=== PATIENT | male | born 1940 | race Caucasian/White ===

== ENCOUNTER 2023-02-01 10:48 | Inpatient (IN) | payer MEDICARE, OTHER ==
[~2023-02-01] VITALS: Ht 185.4 cm; Wt 105.2 kg
[2023-02-01] VITALS (8 sets, daily range): BP systolic 73–97; BP diastolic 23–50
--- NOTE | 2023-02-01 11:11 | NUR ---
DR. ABRAHAM AT BEDSIDE
--- NOTE | 2023-02-01 11:13 | NUR ---
CODE STROKE ACTIVATED
--- NOTE | 2023-02-01 11:15 | NUR ---
ESTABLISHED IV ACCESS LEFT AC 20G. BLOOD DRAWN AND SENT TO LAB.
--- NOTE | 2023-02-01 11:16 | NUR ---
PRESIDENT AND CEO, PHARMACIST, NURSING DIRECTOR OF SPECIAL EVENTS AT BEDSIDE.
[2023-02-01] MEDS ORDERED: IV NS 0.9% 250 ML IV ONE (11:18)
[2023-02-01] MEDS ORDERED: IOHEXOL-350 100 ML VIAL IV ONE (11:18)
--- NOTE | 2023-02-01 11:20 | NUR ---
PT TAKEN TO CT VIA RHUBER.
[2023-02-01 11:30] LABS: BASOPHILS # (AUTO) 0.1 K/uL (0.0-0.2); BASOPHILS % (AUTO) 0.5 % (0.0-2.0); HEMATOCRIT 29 % (39-51); HEMOGLOBIN 9.3 g/dL (13.5-17.5); LYMPHOCYTES # (AUTO) 0.3 K/uL (0.8-4.8); LYMPHOCYTES % (AUTO) 2.3 % (20.0-44.0); MEAN CORPUSCULAR HGB CONC 33 g/dl (31.0-36.0); MEAN CORPUSCULAR VOLUME 101 fL (80-96); MONOCYTES # (AUTO) 0.8 K/uL (0.1-1.30); MONOCYTES % (AUTO) 5.9 % (2.0-12.0); NEUTROPHILS # (AUTO) 12.1 K/uL (1.8-8.9); NEUTROPHILS % (AUTO) 91.3 % (43.0-81.0); PLATELET COUNT (AUTO) 83 K/uL (150-450); RED BLOOD CELL COUNT(AUTO) 2.83 MIL/uL (4.5-6.0); WHITE BLOOD COUNT (AUTO) 13.3 K/uL (4.3-11.0)
[2023-02-01] MEDS ORDERED: IV NS 0.9% 500 ML BAG IV ONE (11:30)
--- NOTE | 2023-02-01 11:32 | NUR ---
Meet lehman son Mirela Maximo - [phone]
[2023-02-01 11:45] LABS: ALANINE AMINOTRANSFERASE 23 U/L (12-78); ALBUMIN 2.7 g/dL (3.4-5.0); ALKALINE PHOSPHATASE 157 U/L (46-116); ASPARTATE AMINOTRANSFERASE 67 U/L (15-37); BILIRUBIN,DIRECT 1.7 mg/dL (0.0-0.2); BILIRUBIN,TOTAL 4.3 mg/dL (0.2-1.0); CALCIUM, SERUM 9.6 mg/dL (8.5-10.1); CARBON DIOXIDE 24 mmol/L (21-32); CHLORIDE 97 mmol/L (98-107); CREATININE 3.4 mg/dL (0.6-1.3); GLUCOSE 126 mg/dL (74-106); POTASSIUM 5.6 mmol/L (3.5-5.1); SODIUM SERUM 136 mmol/L (136-145); TOTAL PROTEIN, SERUM 6.1 g/dL (6.4-8.2); UREA NITROGEN, BLOOD 156 mg/dL (7-18)
--- NOTE | 2023-02-01 11:50 | NUR ---
R AC 20 G
[2023-02-01] MEDS ORDERED: ONDA4TAB5 PO (11:53)
[2023-02-01] MEDS ORDERED: DOCU-141 PO (11:53)
[2023-02-01] MEDS ORDERED: MELA3TAB41 PO (11:53)
[2023-02-01] MEDS ORDERED: APIX2.5T PO (11:53)
[2023-02-01] MEDS ORDERED: MULT-447 PO (11:53)
[2023-02-01] MEDS ORDERED: ALLO100T PO (11:53)
[2023-02-01] MEDS ORDERED: LACT10SO3 PO (11:53)
[2023-02-01] MEDS ORDERED: TROS20TA3 PO (11:53)
[2023-02-01] MEDS ORDERED: NA P133E RC (11:53)
[2023-02-01] MEDS ORDERED: ASCO-352 PO (11:53)
[2023-02-01] MEDS ORDERED: BUME2TAB7 PO (11:53)
[2023-02-01] MEDS ORDERED: POLY17PO4 PO (11:53)
[2023-02-01] MEDS ORDERED: MAGN400O6 PO (11:53)
[2023-02-01] MEDS ORDERED: CHOL100043 PO (11:53)
[2023-02-01] MEDS ORDERED: POTA-88 PO (11:53)
[2023-02-01] MEDS ORDERED: METO2.5T2 PO (11:53)
[2023-02-01] MEDS ORDERED: BISA10SU11 RC (11:53)
[2023-02-01 11:57] LABS: ABG PCO2 29.9 mmHg (35.0-45.0); ABG PH 7.482 (7.350-7.450); ABG PO2 93.9 mmHg (75.0-100.0); COHb 0.3 % (0.5-1.5); MetHb 0.3 % (0.0-1.5); O2Hb 95.8 % (94.0-97.0); SITE, ABG Right Radial; VENT MODE, BG RA 21%
[2023-02-01] MEDS ORDERED: IV NS 0.9% 1,000 ML BAG IV ONE (12:00)
[2023-02-01] MEDS ORDERED: LEVOFLOXACIN 750 MG /D5W 150ML PIGGYBACK IV ONE (12:00)
[2023-02-01] MEDS ORDERED: VANCOMYCIN 1 GM in IV D5W 250 ML IV ONE (12:00)
--- NOTE | 2023-02-01 12:03 | NUR ---
COVID SWAB OBTAINED
--- NOTE | 2023-02-01 12:06 | NUR ---
KIYA "DAUGHTER" Addendum: 02/01/23 at 9908 by KEENA kiya is the
[2023-02-01 12:29] LABS: BAND % (MANUAL) 6 % (0.0-5.0); EOSINOPHILS % (MANUAL) 0 % (0-4); LYMPHOCYTES % (MANUAL) 3 % (16-48); MONOCYTES % (MANUAL) 7 % (0-11.0); NEUTROPHILS % (MANUAL) 84 (42-76)
--- NOTE | 2023-02-01 12:37 | NUR ---
URINE SAMPLE OBTAINED
--- NOTE | 2023-02-01 12:37 | NUR ---
16 fr mejia cath inserted
[2023-02-01] MEDS ORDERED: LEVOFLOXACIN 750 MG /D5W 150ML 150 ML IV ONE (13:05)
[2023-02-01 13:06] LABS: BILIRUBIN,URINE NEGATIVE (NEGATIVE); COLOR,URINE YELLOW (YELLOW); LEUKOCYTE ESTERASE ,URINE NEGATIVE (NEGATIVE); NITRITE, URINE NEGATIVE (NEGATIVE); PROTEIN,URINE NEGATIVE (NEGATIVE); UGLUCOSE NEGATIVE (NEGATIVE); UROBILINOGEN,URINE 0.2 EU/dL (0.2)
[2023-02-01] MEDS ORDERED: LACTULOSE 10 G/15 ML UDC (PYXIS) GT ONE (14:00)
[2023-02-01] MEDS ORDERED: LACTULOSE 10 G/15 ML UDC (PYXIS) ONE ×2 (14:15→14:16)
--- NOTE | 2023-02-01 14:22 | NUR ---
BED ASSIGNMENT 253
--- NOTE | 2023-02-01 14:40 | NUR ---
ng tube placed
--- NOTE | 2023-02-01 15:01 | NUR ---
report given to JEET SIERRA for ray
--- NOTE | 2023-02-01 15:23 | NUR ---
patient transported via gurney [facility] protocol
--- NOTE | 2023-02-01 15:25 | NUR ---
RN NOTE RECEIVED PATIENT FROM ER VIA GURNEY VERY CONFUSED. ON ROOM AIR SATING 97% NO SOB NO DISTRESS NOTED AT THIS TIME. WITH IV ACCESS AT RIGHT UPPER ARM GAUGE 20 AND LEFT AC GAUGE 20 PATENT FLUSHES WELL NO REDNESS NOTED AT THIS TIME. WITH NGT IN PLACE PER REPORT LACTULOSE WAS GIVEN. HAS BRAUN CATHETER PATENT DRAINING YELLOW URINE .BODY CHECKED DONE NOTED WITH MULTIPLE SKIN DISCOLORATION AND MULTIPLE SKIN TEAR OF BOTH UPPER AND LOWER EXTREMITIES, PHOTOS TAKEN AND PLACED IN THE CHART. ALL SAFETY MEASURES IN PLACE. BED IN LOW AND LOCKED POSITION,SIDE RAILS UP X 3,HOB ELEVATED. CALL LIGHT WITHIN REACH. WILL MONITOR THE PATIENT.
[2023-02-01] MEDS ORDERED: ONDANSETRON HCL/PF 4 MG/2 ML VIAL IVP PRN (15:30)
[2023-02-01] MEDS: IV D5/ 0.9% NACL 1,000 ML IV PRN (17:37)
--- NOTE | 2023-02-01 18:20 | NUR ---
RECEIVED A CALL , SPOKE AT LENGTH TO PATIENT'S / ROSALIA KYIA OVER PHONE. FAMILY WISHES TO CHANGE CODE STATUS TO DNR/DNI/ NO VASOPRESSORS. FAMILY INDICATED NO FURTHER AGGRESSIVE MEDICAL TREATMENT. DR. BEN ROY MADE AWARE. ORDERS PLACED.
[2023-02-01] MEDS ORDERED: NOREPINEPHRINE 8 MG in IV NS 0.9% 242 ML IV PRN (18:30)
--- NOTE | 2023-02-01 19:39 | NUR ---
TEENAGE BABYSITTER CLOSING NOTE R PATIENT IN BED ASLEEP BUT VERY CONFUSED. ON ROOM AIR SATING 97% NO SOB NO DISTRESS NOTED AT THIS TIME. WITH IV ACCESS AT RIGHT UPPER ARM GAUGE 20 AND LEFT AC GAUGE 20 PATENT FLUSHES WELL NO REDNESS NOTED AT THIS TIME. IV D5NS RUNNING AT 75 ML/HR WITH NGT IN PLACE CLAMPED. HAS BRAUN CATHETER PATENT DRAINING YELLOW URINE . ALL SAFETY MEASURES IN PLACE. BED IN LOW AND LOCKED POSITION,SIDE RAILS UP X 3,HOB ELEVATED. CALL LIGHT WITHIN REACH. ENDORSED TO MANAGER CLINICAL PHARMACY RN FOR DOLORES
[2023-02-02] VITALS (36 sets, daily range): BP systolic 71–96; BP diastolic 33–74
[2023-02-02 05:06] LABS: BASOPHILS % (AUTO) 0.1 % (0.0-2.0); HEMATOCRIT 25 % (39-51); HEMOGLOBIN 8.3 g/dL (13.5-17.5); LYMPHOCYTES # (AUTO) 0.4 K/uL (0.8-4.8); LYMPHOCYTES % (AUTO) 3.7 % (20.0-44.0); MEAN CORPUSCULAR HGB CONC 33 g/dl (31.0-36.0); MEAN CORPUSCULAR VOLUME 101 fL (80-96); MONOCYTES # (AUTO) 0.6 K/uL (0.1-1.30); MONOCYTES % (AUTO) 5.5 % (2.0-12.0); NEUTROPHILS # (AUTO) 10.7 K/uL (1.8-8.9); NEUTROPHILS % (AUTO) 90.7 % (43.0-81.0); PLATELET COUNT (AUTO) 68 K/uL (150-450); RED BLOOD CELL COUNT(AUTO) 2.46 MIL/uL (4.5-6.0); WHITE BLOOD COUNT (AUTO) 11.8 K/uL (4.3-11.0)
[2023-02-02 05:23] LABS: CALCIUM, SERUM 8.9 mg/dL (8.5-10.1); CARBON DIOXIDE 26 mmol/L (21-32); CHLORIDE 102 mmol/L (98-107); CREATININE 3.4 mg/dL (0.6-1.3); GLUCOSE 147 mg/dL (74-106); MAGNESIUM 2.5 mg/dL (1.8-2.4); PHOSPHORUS 4.8 mg/dL (2.5-4.9); POTASSIUM 4.6 mmol/L (3.5-5.1); SODIUM SERUM 139 mmol/L (136-145)
[2023-02-02 05:25] LABS: UREA NITROGEN, BLOOD 145 mg/dL (7-18)
[2023-02-02] MEDS: IV D5/ 0.9% NACL 1,000 ML IV PRN (06:30)
[2023-02-02 07:18] LABS: BAND % (MANUAL) 6 % (0.0-5.0); LYMPHOCYTES % (MANUAL) 6 % (16-48); MONOCYTES % (MANUAL) 6 % (0-11.0); NEUTROPHILS % (MANUAL) 82 (42-76)
--- NOTE | 2023-02-02 08:00 | NUR ---
RN NOTES RECEIVED PATIENT LETHARGIC,DNR/DNI, NO PRESSORS, UNSTABLE CONDITION. UNABLE TO OPEN EYES, PATIENT ROOM AIR 02-94%, BP 77/39, P- 82. NGT INTACT AND CLAMPED . PATIENT HAS GENERALIZED EDEMA, DISCOLORATION OF LOWER AND UPPER EXTREMITIES. LAB VALUES REVIEWED, HOSPITALIST AWARE OF. IV ACCESS AT RIGHT UPPER ARM GAUGE 20 AND LEFT AC GAUGE 20 PATENT FLUSHES WELL NO REDNESS NOTED AT THIS TIME. IV D5NS RUNNING AT 75 ML/HR . HAS BRAUN CATHETER PATENT DRAINING BLOODY OUTPUT. SIDE RAILS UP X 3,HOB ELEVATED. CALL LIGHT WITHIN REACH. NEEDS ATTENDED AND ANTICIPATED. WILL FOLLOW UP.
[2023-02-02] MEDS ORDERED: PANTOPRAZOLE 40 MG VIAL IV SCH (09:00)
--- NOTE | 2023-02-02 09:00 | NUR ---
RN NOTES GET ORDER MIDLINE INSERTION.
--- NOTE | 2023-02-02 10:08 | NUR ---
RN NOTES SEEN PATIENT VIA HOSPITALIST Dr NOWAK, GET VERBAL ORDER AMMONIA LEVEL, AND LACTULOSE 20MG Q4HR. ORDER TAKEN AND CARRIED OUT.
--- NOTE | 2023-02-02 10:47 | NUR ---
RN NOTES PATIENT ON COMFORT MEASURE PER AT THIS TIME. HOSPITALIST NOTIFIED.
[2023-02-02] MEDS ORDERED: LORAZEPAM INJ 2 MG/ML VIAL IV PRN (12:30)
[2023-02-02] MEDS ORDERED: MORPHINE SULFATE INJ 2 MG/ML DISP.SYRIN IM PRN (12:30)
[2023-02-02] MEDS ORDERED: LACTULOSE 10 G/15 ML UDC (PYXIS) PO SCH (13:00)
--- NOTE | 2023-02-02 16:50 | NUR ---
RN NOTES TRANSFERRED PATIENT TO THE MED/SURGE UNIT ROOM 313 BED B. PATIENT ON COMFORT CARE MEASURE. REPORT GIVEN MED/SURGE RN FOLLOW PLAN OF CARE.
--- NOTE | 2023-02-02 17:40 | NUR ---
MS TABLE MAKER NOTES RECEIVED THIS 82 YO MALE FROM ICU FOR COMFORT MEASURES ONLY. PATIENT ARRIVED IN HIS BED WITH 2 ICU STAFF. PATIENT IS STUPOROUS, DIFFICULT TO AROUSE. DOESNT RESPOND TO AUDITORY STIMULI. PATIENT IS ON ROOM AIR, TACHYPNEIC, FOLLOWING VS RECORDED: BP 68/31, P-91, T-97.6. SPO2-98% RR -28. PATIENT HAS THE FOLLOWING IV ACCESS: MARTA G#20, LACG#20, JACOB MIDLINE ALL SALINE LOCKED. PATIENT IS SEVERELY EDEMATOUS ON ALL EXTREMITIES WITH NOTED MOTTLING ON THE LOWER EXTREMITIES. BRAUN CATHETER IS DRAINING RUSSELL RED BLOOD. FLACC SCORE IS ZERO. SAFETY MEASURES IN PLACE: BED IN LOWEST AND LOCKED POSITION, SIDE RAILS UP X2, CALL LIGHT WITHIN EASY REACH. WILL CONTINUE TO MONITOR.
--- NOTE | 2023-02-02 19:00 | NUR ---
RN opening notes Received Pt from morning nurse. Pt is resting in bed comfortably. Pt is on comfort measures. On 2 L NC. No SOB. No S/S of distress noted. Tyson cath is intact and draining dark brown color. Keep Pt clean, dry and comfortable. Bed at low position, brakes locked, side rails up X3, hob elevated, bed alarm is on and call light is within reach. Will continue to monitor. Addendum: 02/03/23 at 0035 by THIERRY KUHN RN Tyson cath draining dark red color.
--- NOTE | 2023-02-02 19:24 | NUR ---
MS RN CLOSING NOTES PATIENT HAS BEEN ENDORSED TO RIGO GUADARRAMA FOR COMFORT MEASURES ONLY. PATIENT IS STABLE DURING THIS TIME, NOT IN ANY FORM OF ACUTE DISTRESS, FLACC SCORE ZERO. CHANGED THE PATIENT'S DIAPER TO KEEP HIM DRY, COVERED PT WITH BLANKET TO KEEP HIM WARM. RECEIVED THE PATIENT'S WATCH FROM ICU AND ENDORSED TO RIGO GUADARRAMA FOR SAFEKEEPING. SAFETY MEASURES MAINTAINED: BED IN LOWEST AND LOCKED POSITION, SIDE RAILS UP X2, CALL LIGHT WITHIN EASY REACH.
--- NOTE | 2023-02-03 00:55 | NUR ---
RN notes Witness Pt is having seizure activity. Administered ativan/iv push as ordered. safety precautions is maintained. O2 sat is 96% on non rebreather mask 10 L. Charge nurse is aware and informed. Will continue to monitor.
--- NOTE | 2023-02-03 06:15 | NUR ---
RN notes VS unable to appreciate. Confirmed with charge nurse RIGO Ohara and RIGO Roldan.
--- NOTE | 2023-02-03 06:15 | NUR ---
RN notes Pt passed peacefully in bed. Witness by RIGO Roldan and Charge nurse RIGO Ohara. VS is taken.
--- NOTE | 2023-02-03 06:17 | NUR ---
RN notes Spoke with Pt's Mirela Marsh regarding Pt passed peacefully at 0615. Pt verbalize understanding and appreciate the help and support from the staffs.
--- NOTE | 2023-02-03 06:20 | NUR ---
RN notes Called and spoke with [facility] [employer] Yanci Menjivar. Yanci informed to release the body. Reference number [id number]. Charge nurse is aware and informed.
--- NOTE | 2023-02-03 06:20 | NUR ---
RN notes Informed hospitalist Dr. Mallory that Pt passed at 0615.
--- NOTE | 2023-02-03 06:21 | NUR ---
RN notes Called admitting to informed Pt passed at 0615.
--- NOTE | 2023-02-03 06:22 | NUR ---
RN notes Called and spoke with house sup. RIGO Meraz regarding Pt passed at 0615.
--- NOTE | 2023-02-03 06:36 | NUR ---
RN notes Called and spoke with Pt's Mirela regarding Pt's watch. Pt's informed to give Pt's watch to mortuary. Will endorse to am nurse and am charge nurse.
--- NOTE | 2023-02-03 06:37 | NUR ---
RN notes Spoke with Josue from [facility]. They will seed cone picker the body at 0830. Charge nurse is aware and informed. Will endorse to am nurse.
--- NOTE | 2023-02-03 07:30 | NUR ---
RN notes Received a phone call from Marii director of [facility] ([phone]). Marii informed that they will picker packer the body tomorrow morning at 0900 am instead of 0830 am today. Called Nursing track inspecting supervisor Carmelita. Carmelita stated to have Marii call her. Transfer Marii phone call to Carmelita Childers Sup. Charge nurse is aware and informed.
--- NOTE | 2023-02-03 07:40 | NUR ---
RN notes Endorsed DOLORES to am nurse. Also informed regarding Pt's watch to am nurse RIGO Brown and Charge nurse RIGO Plasencia.
--- NOTE | 2023-02-03 08:23 | NUR ---
RN NOTES REPORT RECEIVED FROM DOUBLE END TENONER OPERATORTIRE MAINTENANCE TECHNICIAN THIERRY THAT PT AT 0615. POST MORTEM CARE DONE. PATIENT'S BODY BROUGHT TO [facility] AT 0815 BY SECURITY. PATIENT'S WATCH HANDED TO RNS ELIZABETH AND STATED THAT SHE WILL HAND/GIVE IT TO MORTUARY ONCE THEY COME TO PICK-UP PT'S BODY.
== END 2023-02-03 06:15 | DRG 441 ==
LOC: ER 10:48 → ICU 14:27 → MED 02-02 18:34
PROVIDERS: ATTEND Nurse Practitioner Acute Care
PROC: 05H933Z Insertion of Infusion Device into Right Brachial Vein, Percutaneous Approach (ICD-10-PCS; principal; 2023-02-02)
DX: K76.82 Hepatic encephalopathy (principal); I21.A1 Myocardial infarction type 2; J96.01 Acute respiratory failure with hypoxia; G93.49 Other encephalopathy; I13.2 Hypertensive heart and chronic kidney disease with heart failure and with stage 5 chronic kidney disease, or end stage renal disease; N18.5 Chronic kidney disease, stage 5; E87.20 Acidosis, unspecified; I48.20 Chronic atrial fibrillation, unspecified; D68.8 Other specified coagulation defects; E44.0 Moderate protein-calorie malnutrition; K74.60 Unspecified cirrhosis of liver; Z66 Do not resuscitate; Z51.5 Encounter for palliative care; E11.22 Type 2 diabetes mellitus with diabetic chronic kidney disease; E87.5 Hyperkalemia; I50.9 Heart failure, unspecified; I46.9 Cardiac arrest, cause unspecified; E88.09 Other disorders of plasma-protein metabolism, not elsewhere classified; D53.9 Nutritional anemia, unspecified; D63.1 Anemia in chronic kidney disease; Z20.822 Contact with and (suspected) exposure to COVID-19
CPT/HCPCS: 36410; 36415; 36600; 70450-TC; 70496-TC; 71045-TC; 80048-TC; 80076-TC; 82140-TC; 82803-TC; 82962-TC; 83605-TC; 83735-TC; 84100-TC; 84484-TC; 85025-TC; 85730-TC; 86850-TC; 87040-TC; 87081-TC; 87086-TC; 94799-TC; A4223; A6403; C9113; C9803; G0378; J1956; J2060; J3370; J7030; J7040; J7042; J7050; J7060; Q9967